=== PATIENT | female | born 1985 | race Caucasian/White ===

== ENCOUNTER → 2020-04-08 11:10 | Observation (INO) ==
[2020-04-08 11:22] LABS: Basophils % 0.3 %; Eosinophils # 0.3 K/mcL (0.0-0.6); Eosinophils % 3.6 %; Hematocrit 33.1 % (35.3-44.9); Hemoglobin 10.6 g/dL (11.5-15.4); Immature Granulocytes % 0.7 % (0-4); Lymphocytes # 1.8 K/mcL (0.6-4.6); Lymphocytes % 25.4 %; Mean Corpuscular Hemoglobin 30.3 pg (28.0-33.3); Mean Corpuscular Volume 94.6 fL (83.0-100.0); Mean Platelet Volume 9.2 fL (9.4-12.4); Monocytes # 0.6 K/mcL (0.0-1.3); Monocytes % 7.9 %; Neutrophils # 4.5 K/mcL (1.6-8.9); Platelet Count 208 K/mcL (140-400); Red Cell Distribution Width 13.2 % (11.5-14.5); Segmented Neutrophils % 62.1 %; White Blood Count 7.3 K/mcL (4.3-11.1)
[2020-04-08 11:38] LABS: Protein/Creatinine Ratio,Urine 0.15 mg/mg (0.00-0.20)
[2020-04-08 11:39] LABS: Alanine Aminotransferase 12 Units/L (7-52); Aspartate Amino Transferase 12 Units/L (13-39); BUN/Creatinine Ratio 16 (6-26); Blood Urea Nitrogen 9 mg/dL (6-20); Lactate Dehydrogenase 112 Units/L (140-271); eGFR For African Americans > 60 (> 60); eGFR For Non-African Americans > 60 (> 60)
== END | disposition home or self-care (01) ==
LOC: 1NENULAB
PROVIDERS: ADMIT Obstetrics & Gynecology; ATTEND Obstetrics & Gynecology

== ENCOUNTER → 2020-06-18 10:55 | Observation (INO) ==
[2020-06-18 10:04] LABS: Basophils % 0.1 %; Eosinophils # 0.2 K/mcL (0.0-0.6); Eosinophils % 2.7 %; Hematocrit 32.2 % (35.3-44.9); Hemoglobin 10.4 g/dL (11.5-15.4); Immature Granulocytes % 0.7 % (0-4); Lymphocytes # 1.6 K/mcL (0.6-4.6); Lymphocytes % 19.6 %; Mean Corpuscular HGB Conc 32.3 g/dL (31.6-35.5); Mean Corpuscular Hemoglobin 29.5 pg (28.0-33.3); Mean Corpuscular Volume 91.5 fL (83.0-100.0); Mean Platelet Volume 9.2 fL (9.4-12.4); Monocytes # 0.5 K/mcL (0.0-1.3); Monocytes % 6.5 %; Neutrophils # 5.9 K/mcL (1.6-8.9); Platelet Count 206 K/mcL (140-400); Red Blood Count 3.52 M/mcL (3.82-4.97); Red Cell Distribution Width 12.9 % (11.5-14.5); Segmented Neutrophils % 70.4 %; White Blood Count 8.4 K/mcL (4.3-11.1)
[2020-06-18 10:11] LABS: Protein/Creatinine Ratio,Urine 0.22 mg/mg (0.00-0.20)
[2020-06-18 10:22] LABS: Alanine Aminotransferase 9 Units/L (7-52); Aspartate Amino Transferase 13 Units/L (13-39); BUN/Creatinine Ratio 15 (6-26); Blood Urea Nitrogen 8 mg/dL (6-20); Lactate Dehydrogenase 143 Units/L (140-271); Uric Acid 4.5 mg/dL (2.3-7.6); eGFR For African Americans > 60 (> 60); eGFR For Non-African Americans > 60 (> 60)
[~2020-06-18 10:55] MED LIST: FLU Vac QV HD 20-21 (65YR+)/PF 0.7 ML SYRINGE IM ONE
== END | disposition home or self-care (01) ==
LOC: 1NENULAB
PROVIDERS: ADMIT Student in an Organized Health Care Education/Training Program; ATTEND Student in an Organized Health Care Education/Training Program

== ENCOUNTER → 2020-07-17 23:15 | Observation (INO) ==
[2020-07-17 21:02] VITALS: BP 138/63
[2020-07-17 21:08] LABS: Bilirubin,Urine Negative (Negative); Blood,Urine Negative (Negative); Clarity,Urine Clear (Clear); Color,Urine Light-Yellow (Yellow); Glucose,Urine (UA) Normal (Normal); Ketones,Urine Negative (Negative); Leukocyte Esterase,Urine Negative (Negative); Nitrite,Urine Negative (Negative); Protein,Urine Negative (Neg-Trace); Specific Gravity,Urine 1.018 (1.010-1.025); Urobilinogen,Urine Normal (Normal)
== END | disposition home or self-care (01) ==
LOC: 1NENULAB
PROVIDERS: ADMIT Obstetrics & Gynecology; ATTEND Obstetrics & Gynecology

== ENCOUNTER 2020-07-22 10:31 | Inpatient (IN) ==
[~2020-07-22 10:31] MED LIST changes: -FLU Vac QV HD 20-21 (65YR+)/PF 0.7 ML SYRINGE IM ONE; +Famotidine 20 MG/2 ML VIAL IVP PRN; +Metoclopramide 10 MG/2 ML VIAL IVP PRN; +Naloxone 0.4 MG/ML INJ IVP PRN
[2020-07-22] MEDS ORDERED: Ringers Solution, Lactated 1,000 ML IVC SCH (10:45)
[2020-07-22] MEDS ORDERED: miSOPROStoL 25 MCG TABLET VG PRN (11:05)
[2020-07-22 12:01] LABS: Basophils % 0.2 %; Eosinophils # 0.2 K/mcL (0.0-0.6); Eosinophils % 1.7 %; Hematocrit 32.5 % (35.3-44.9); Hemoglobin 10.1 g/dL (11.5-15.4); Immature Granulocytes % 0.5 % (0-4); Lymphocytes # 1.6 K/mcL (0.6-4.6); Mean Corpuscular HGB Conc 31.1 g/dL (31.6-35.5); Mean Corpuscular Hemoglobin 27.8 pg (28.0-33.3); Mean Corpuscular Volume 89.5 fL (83.0-100.0); Mean Platelet Volume 9.9 fL (9.4-12.4); Monocytes # 0.7 K/mcL (0.0-1.3); Monocytes % 8.6 %; Platelet Count 230 K/mcL (140-400); Red Blood Count 3.63 M/mcL (3.82-4.97); Red Cell Distribution Width 13.2 % (11.5-14.5); White Blood Count 8.6 K/mcL (4.3-11.1)
[2020-07-22] MEDS ORDERED: Acetaminophen 325 MG TABLET PO ONE (12:02)
[2020-07-22 12:17] LABS: Aspartate Amino Transferase 15 Units/L (13-39); Lactate Dehydrogenase 165 Units/L (140-271)
[2020-07-22 12:28] LABS: Creatinine,Urine 21 mg/dL
[2020-07-22] MEDS ORDERED: EPHEDrine 50 MG/ML VIAL IVP PRN (16:31)
[2020-07-22] MEDS ORDERED: *HR* FentaNYL (PF) 100 MCG/2 ML VIAL ONE (16:35)
[2020-07-22] MEDS ORDERED: Bupivacaine-MPF 0.25% 10 ML VIAL ONE (16:35)
[2020-07-22] MEDS ORDERED: Oxytocin 20 units/ LR 1000 mL 20 UNIT/1,000 ML BAG IVC ONE (16:35)
[2020-07-22] MEDS ORDERED: Epidural Premix (fent/bupiv) 110 ML EP SCH (16:45)
[2020-07-22] MEDS ORDERED: Oxytocin 20 units/ LR 1000 mL 20 UNIT/1,000 ML BAG IVC SCH (18:45)
[2020-07-23] MEDS ORDERED: Benzocaine/Menthol 56 GM AEROSOL SPRAY TP PRN (00:39)
[2020-07-23] MEDS ORDERED: Oxytocin 20 units/ LR 1000 mL 20 UNIT/1,000 ML BAG IVC SCH (00:39)
[2020-07-23] MEDS ORDERED: Acetaminophen 325 MG TABLET PO PRN (00:39)
[2020-07-23] MEDS ORDERED: Lanolin 7 G OINT...G. TP PRN (00:39)
[2020-07-23 05:22] LABS: Basophils % 0.2 %; Eosinophils # 0.1 K/mcL (0.0-0.6); Hematocrit 30.9 % (35.3-44.9); Hemoglobin 9.8 g/dL (11.5-15.4); Immature Granulocytes % 0.4 % (0-4); Lymphocytes # 1.9 K/mcL (0.6-4.6); Lymphocytes % 15.2 %; Mean Corpuscular HGB Conc 31.7 g/dL (31.6-35.5); Mean Corpuscular Hemoglobin 28.2 pg (28.0-33.3); Mean Platelet Volume 9.8 fL (9.4-12.4); Monocytes # 1.3 K/mcL (0.0-1.3); Monocytes % 9.9 %; Neutrophils # 9.3 K/mcL (1.6-8.9); Platelet Count 216 K/mcL (140-400); Red Blood Count 3.47 M/mcL (3.82-4.97); Red Cell Distribution Width 13.2 % (11.5-14.5); Segmented Neutrophils % 73.3 %; White Blood Count 12.7 K/mcL (4.3-11.1)
[2020-07-23] MEDS: Ibuprofen 600 MG TABLET PO PRN ×2 (09:03→16:42)
[2020-07-23] MEDS: Prenatal Vit/FA 1 EACH TABLET PO SCH (09:03)
[2020-07-23] MEDS: FLUoxetine 20 MG CAPSULE PO SCH (09:03)
[2020-07-24] MEDS: Ibuprofen 600 MG TABLET PO PRN ×2 (00:39→07:53)
[2020-07-24 07:46] VITALS: BP 126/81
[2020-07-24] MEDS: FLUoxetine 20 MG CAPSULE PO SCH (07:53)
[2020-07-24] MEDS: Prenatal Vit/FA 1 EACH TABLET PO SCH (07:53)
== END 2020-07-24 12:23 | disposition home or self-care (01) | DRG 560 ==
LOC: 1NENULAB → 1NENUOBS 07-23 00:40
PROVIDERS: ADMIT Obstetrics & Gynecology; ATTEND Obstetrics & Gynecology